=== PATIENT | male | born 1995 | race Caucasian/White ===

== ENCOUNTER 2016-09-06 16:30 | Emergency (ER) | payer BC, OTHER ==
[2016-09-06] MEDS ORDERED: Lactated Ringers 1,000 ML IV ONE (17:02)
[2016-09-06] MEDS ORDERED: Sodium Chloride 0.9% 1,000 ML IV ONE (17:03)
[2016-09-06] MEDS ORDERED: Sodium Chloride 0.9% 10 ML Syringe FLUSH PRN (17:10)
[2016-09-06 19:03] VITALS: BP 143/71
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
== END 2016-09-06 19:15 | disposition home or self-care (01) ==
LOC: FB.ED 16:30
DX: R55 Syncope and collapse (principal); R03.0 Elevated blood-pressure reading, without diagnosis of hypertension
CPT/HCPCS: 36415; 80053; 80305; 81001; 85025; 93005; 96360; 96361; 99285; G0480; J7040; J7050; J7120